=== PATIENT | female | born 1950 | race Caucasian/White ===

== ENCOUNTER → 2016-08-17 | Outpatient (CLI) | payer MEDICARE, OTHER | END | disposition home or self-care (01) | LOC: RESC 08-10 13:05 → PTH.S 08:45 → RESC 09:00 | DX: J44.9 Chronic obstructive pulmonary disease, unspecified (principal); R06.00 Dyspnea, unspecified; K44.9 Diaphragmatic hernia without obstruction or gangrene; K76.89 Other specified diseases of liver ==

== ENCOUNTER 2016-09-06 18:17 | Emergency (ER) | payer MEDICARE, OTHER ==
--- NOTE | 2016-09-07 02:11 | ER ---
ADMIT: 09/06/2016 RM/LOC: ER [facility] MR#: [id number] [id number] NICK THOMAS Stephanie [address] [place] [id number] Emergency Room Report SEX: F AGE: 66 : 1950 DATE: 09/06/2016 HISTORY OF PRESENT ILLNESS: The patient is a 66-year-old female with a past medical of COPD, on home oxygen, who came to the ER with chief complaint of fever, chills and right gluteal pain. The patient states her shortness of breath is at her baseline and denies increase in yellow sputum. The patient also denies any runny nose and states she had a dry cough. The patient also complains of right lower back pain, mostly on the right lateral superior gluteal area, which increases with palpation, and the patient denies any trauma or fall. The patient has been able to walk without difficulty and does not have any antalgic gait. The patient denies any saddle anesthesia, urinary or stool incontinence or retention. The patient states at home she was febrile to 101, but in the ER, patient was afebrile, stated she took aspirin. PHYSICAL EXAMINATION: HEAD AND NECK: Noncontributory. CHEST: There were no crackles or wheezing, and decreased breath sounds bilaterally. HEART: Sounds normal S1, S2. ABDOMEN: Soft. There is no swelling in lower extremities and there is no tenderness in lower extremities and the rest of the physical exam except for right gluteal area is normal. The patient has normal gait. In the right gluteal area, mostly on the right posterior superior iliac spine area, there are 2 trigger points. Negative straight leg raise. The patient had normoactive and passive range of motion, which is nonpainful, on both hips and all the joints of lower extremities. LABORATORY AND IMAGING DATA: Chest x-ray did not show any obvious infiltration. There were no effusions also. The patient was negative for influenza A and B titers. The patient received two trigger point injections with lidocaine 1% with epinephrine and Marcaine 0.25%, totally 5 mL, in the right lateral, superior gluteal area above the posterior superior iliac spine area, which decreased the pain to some degree. The patient was re-examined and is mobilizing without difficulty. PLAN: The patient to be discharged to home to be followed up with the primary care doctor. Celestine Hernandez MD/ jia JOB #: [id number] CC: Trent Valencia MD, Attending Physician Verónica Garcia MD, Family Physician
== END 2016-09-06 21:20 | disposition home or self-care (01) ==
LOC: ER 18:17
PROC: 3E023BZ Introduction of Anesthetic Agent into Muscle, Percutaneous Approach (ICD-10-PCS; principal; 2016-09-06)
DX: J44.9 Chronic obstructive pulmonary disease, unspecified (principal); M79.1 Myalgia; Z79.51 Long term (current) use of inhaled steroids